=== PATIENT | male | born 1955 | race Caucasian/White ===

== ENCOUNTER → 2018-11-21 06:59 | Outpatient (CLI) | payer MEDICARE, OTHER, SELFPAY ==
[2018-11-21 07:45] LABS: Hematocrit 45.1 % (41-53); Hemoglobin 14.9 g/dL (13.5-17.5)
[2018-11-21 08:14] LABS: Blood Urea Nitrogen 20 mg/dL (9-20); Calcium 9.2 mg/dL (8.4-10.2); Carbon Dioxide 28 mmol/L (22-32); Chloride 103 mmol/L (98-107); Cholesterol 197 mg/dL (140-199); Estimated Glomerular Filt Rate > 60.0 mL/min (>60); Glucose 108 mg/dL (80-110); HDL Cholesterol 57 mg/dL (40-60); HEMOLYSIS < 15 (0-50); LDL Cholesterol Calculated 113 mg/dL (<100); Potassium 4.2 mmol/L (3.4-5.1); Sodium 138 mmol/L (137-145); Triglycerides 134 mg/dL (35-150)
[2018-11-21 08:31] LABS: Vitamin D 25 Hydroxy (D3) 20.5 ng/mL (30.0-100.0)
[2018-11-21 08:45] LABS: Prostate Specific Antigen Scrn 0.767 ng/mL (0.1-4.0)
== END ==
PROVIDERS: PCP Student in an Organized Health Care Education/Training Program; Visit Provider Student in an Organized Health Care Education/Training Program
DX: E55.9 Vitamin D deficiency, unspecified (principal); E78.00 Pure hypercholesterolemia, unspecified; G47.30 Sleep apnea, unspecified; I10 Essential (primary) hypertension; Z12.5 Encounter for screening for malignant neoplasm of prostate
CPT/HCPCS: 36415; 80048; 80061; 82306; 85014; 85018; G0103

== ENCOUNTER → 2018-12-08 15:56 | Outpatient (CLI) | payer MEDICARE, OTHER, SELFPAY ==
--- NOTE | 2018-12-08 15:59 | DI.RAD.S_ITS ---
PROCEDURE: XR KNEE LT 3V INDICATIONS: left knee effusion TECHNIQUE: 3 views of the knee were acquired. COMPARISON: None. FINDINGS: Bones: No fractures or dislocations. No suspicious bony lesions. Mild tricompartmental osteoarthritis. Soft tissues: Trace suprapatellar joint effusion. No suspicious soft tissue calcifications. IMPRESSION: 1. Mild tricompartmental osteoarthritis. 2. Trace nonspecific joint effusion. 3. No fracture. No acute osseous lesion. If symptoms and/or clinical suspicion for pathology persists, further assessment with repeat radiographs (7-10 days) or advanced imaging (e.g. CT, MRI or bone scan) may be helpful. Dictated by: Leola Schmidt MD, PhD on 12/08/2018 at 16:28 Approved by: Leola Schmidt MD, PhD on 12/08/2018 at 16:29
== END ==
PROVIDERS: PCP Student in an Organized Health Care Education/Training Program; Visit Provider Physician Assistant
DX: S80.02XA Contusion of left knee, initial encounter (principal); M25.462 Effusion, left knee; M17.12 Unilateral primary osteoarthritis, left knee
CPT/HCPCS: 73562

== ENCOUNTER → 2019-01-24 13:50 | Outpatient (CLI) | payer MEDICARE, OTHER, SELFPAY ==
--- NOTE | 2019-01-24 13:52 | DI.NM.S_ITS ---
PROCEDURE: MD RICKI PERF SPECT REST & STR Rest and exercise myocardial perfusion SPECT with gated imaging and ejection fraction RADIOPHARMACEUTICAL: 25.5 mCi Tc-99m sestamibi IV at rest and 24.1 mCi Tc-99m sestamibi IV at peak exercise. A [id number] was performed. INDICATIONS: Fasicular block TECHNIQUE: Radiopharmaceutical was injected at peak stress test, and also at rest. SPECT images were obtained. SPECT myocardial perfusion images were displayed in short axis, horizontal long axis, and vertical long axis views. Gated images were reviewed using [employer] software. COMPARISON: [place], [place], PET/CT WHOLE BODY EXTENDED, 08/31/2013, 11:49. CARDIAC STRESS: A standard Remington treadmill exercise tolerance test was performed by the patient under the supervision of an attending staff. The patient exercised for 8 minutes and 53 seconds; functional aerobic impairment (MARIANA) is -10 %. Hemodynamic data: There is normal heart rate and hypertensive response to exercise stress. Patient achieved 103% of maximum predicted heart rate at peak exercise. Symptoms: Patient denied chest pain during exercise. EKG: No diagnostic EKG changes of ischemia; no ectopy. FINDINGS: Raw data: There is good myocardial labeling by radiotracer. No significant motion artifacts. Lbmf-nq-jlpbh ratio is 0.21 (normal is less than 0.38 for sestamibi tracer, and less than 0.50 for thallium tracer). Left ventricle function: Gated images demonstrate normal left ventricle wall thickening. No segmental wall motion abnormality. No transient ischemic dilation; TID is 1.02 (normal less than 1.3). The left ventricle resting end-diastolic volume is 91 mL. Left ventricle stress ejection fraction is 69% ; normal values are above 45%. Myocardial perfusion: There is a moderate-size, moderately severe perfusion defect involving apical inferior, mid inferior and mid inferolateral and basal inferior and basal inferoseptal oliva on supine stress images which resolve on prone imaging, consistent with artifact secondary to subdiaphragmatic attenuation; There was similar, but at a lesser degree defect involving the inferior and inferolateral wall on supine stress images as well. Otherwise normal distribution of activity in the left ventricular myocardium. No fixed or reversible perfusion defects. IMPRESSION: Good exercise capacity. Negative perfusion study for ischemia r scar. Artefactual inferior and inferolateral wall findings as above. Hypertensive response to exercise. Dictated by: Jose Titus M.D. on 01/25/2019 at 16:35 Approved by: Jose Titus M.D. on 01/25/2019 at 16:43
--- NOTE | 2019-01-24 14:53 | P.PCN_ITS ---
Cardiac Stress Test Report Referral & Results Date Patient Seen: 01/24/19 Time Patient Seen: 14:30 Requesting provider: Bear Perez Indication: New left Fascicular block Procedure Note: Today following both written and verbal informed consent the patient was exercised according to a standard Remington protocol patient went for a total of 8 minutes 53 seconds achieving a maximum heart rate of 160 maximum systolic blood pressure of 210. This is approximately 10.1 METs. Exercise was terminated at this point because of fatigue. Patient was also given Cardiolite through a previously started Hep-Lock IV by the plumbing service technician approximately 1 minute prior to the cessation of exercise. Exaggerated blood pressure response to exercise. Occasional PACs/PVCs that increased in frequency with exercise. No signs or symptoms of angina during the test. MARIANA-10% on the active scale. 1-[address] deviations that resolved rapidly with rest. Impression: Low probability for ischemia, though rhythm disturbance becomes more pronounced with exercise. Will await perfusion imaging. Please note: Actual ECG tracings can be found in the PACS system.
== END ==
PROVIDERS: PCP Student in an Organized Health Care Education/Training Program; Visit Provider Student in an Organized Health Care Education/Training Program
DX: I44.4 Left anterior fascicular block (principal)
CPT/HCPCS: 78452; 93016; 93017; 93018; A9502

== ENCOUNTER 2019-06-13 07:51 | Day surgery (SDC) | payer MEDICARE, OTHER, SELFPAY ==
--- NOTE | 2019-06-13 | PATH_ITS ---
[facility] Accession Number: [id number] . 01 Material submitted: . esophagus - ESOPHAGUS BIOPSY . 02 Diagnosis: Esophagus, Biopsy: Squamous epithelium with increased intraepithelial eosinophils (greater than 50 per high powered field). See comment. Negative for dysplasia and malignancy. V 06/15/2019 1433 Local . 02 Comment: In the proper clinical setting, the histopathologic appearance would support a clinical impression of eosinophilic esophagitis. The differential diagnosis includes drug reaction, gastroesophageal reflux, and food allergies. . . 02 Electronically signed: . Sravan Paz MD, PhD, Pathologist NPI- [id number] . 01 Gross description: . ESOPHAGUS BIOPSY: Received in formalin are multiple fragment(s) of purvis, soft tissue measuring 0.1 x 0.1 x 0.1 cm to 0.3 x 0.2 x 0.2 cm submitted entirely in 1 cassette(s) /[facility] 06/13/2019 1921 Local . 02 Microscopic: . A PAS stain is performed to evaluate for fungal organisms, and is negative. A control stain shows appropriate reactivity. . 02 Pathologist provided ICD-10: K20.0 . 02 CPT . 374564, [id number] Performed at: 01 [facility] [address], [place], [place] [id number] MD Dorian Anthony MD Phone: [phone] Performed at: 02 [facility] [address] [place], [place] [id number] MD Faith Justin MD Phone: [phone]
[2019-06-13 08:12] VITALS: BP 157/106; PULSE 73; RESP 16; TEMP 36.4; O2SAT 96; BMI 30.6
--- NOTE | 2019-06-13 08:18 | PM.HP.1 ---
History of Present Illness History of Present Illness Date Patient Seen: 06/13/19 Chief complaint: [id number] EGD Narrative: Dysphagia Patient History Family & Social History Tobacco & Substance use: Smoking Status Never smoker alcohol intake current Meds Home Medications and Allergies Home Medications Medication Instructions Recorded Confirmed Type fluticasone propionate 50 1 spray NASAL DAILY 11/17/18 12/08/18 History mcg/actuation nasal spray,suspension loratadine 10 mg tablet 10 mg PO DAILY 11/17/18 12/08/18 History montelukast 10 mg tablet 10 mg PO QPM #30 tab 11/17/18 12/08/18 Rx albuterol sulfate 90 mcg/actuation 1 inh INHALATION Q4-6H PRN #18 gram 11/22/18 12/08/18 Rx aerosol inhaler hydrochlorothiazide 12.5 mg tablet 12.5 mg PO DAILY #90 tab 05/30/19 Rx losartan 50 mg tablet 50 mg PO DAILY #90 tab 05/30/19 Rx Allergies Allergy/AdvReac Type Severity Reaction Status Date / Time Sulfa (Sulfonamide Allergy Intermediate Verified 11/24/18 10:27 Antibiotics) [SULFA (SULFONAMIDE ANTIBIOTICS)] Exam Narrative Exam Narrative: Oropharynx free of lesions Chest clear to auscultation percussion Cardiac exam reveals no S3 or murmur Assessment & Plan Assessment & Plan narrative: Dysphagia. Need for upper endoscopy and possible dilation. Previous endoscopy 7 years ago showed only reflux esophagitis no eosinophilic esophagitis. Biopsies will be taken.
--- NOTE | 2019-06-13 08:20 | PM.OP.ENDO ---
Operative Date/Time/Diagnoses Date of procedure: 06/13/19 Pre-op diagnosis: See indication and findings Procedure & Clinicians Study performed: EGD Same procedure as scheduled: Yes Indications: Dysphagia Surgeon: Brisa Rashid Procedure Notes Procedure in detail: After informed consent was obtained the patient was placed in left lateral decubitus position. The video upper scope was placed into the oropharynx and with the patient still solid in the esophagus. The esophagus, stomach, duodenum were carefully examined. On withdrawal, retroflexed view the GE junction was performed. The scope was removed. The patient tolerated procedure well. Blood loss none Complications none Sedation Total sedation time 10 minutes Versed 4 mg fentanyl 100 mg IV titration Findings 1. Some degree of longitudinal furrows and mild rings in the proximal to midesophagus. Biopsies taken to rule out eosinophilic esophagitis. 2. Extensive ulcerations from reflux beginning at 30 cm from the incisors down to 36 cm from the incisors. At the squamocolumnar junction there was LA classification D esophagitis with circumferential ulceration. No tight stricture was seen. 3. 4-5 cm hiatal hernia without Rodolfo lesions 4. Normal distal stomach 5. Normal duodenum Clearly think patient's primary problem with his dysphagia is uncontrolled reflux and ulceration. These need to be here old. I will send in a proton pump inhibitor to his pharmacy and he will return to see us in 1-2 months to discuss how he is doing. We will also get back in touch regarding the biopsies to see if he has eosinophilic esophagitis as well.
[2019-06-13] MEDS: SODIUM CHLORIDE 0.9% 1,000 ML 100 ML IV (08:24)
[2019-06-13] MEDS: fentaNYL 250 MCG/5 ML INJ IV (08:42)
[2019-06-13] MEDS: MIDAZOLAM 5 MG/5 ML VIAL IV (08:43)
[2019-06-13 08:46] VITALS: BP 126/84; PULSE 67; RESP 10; TEMP 36.6; O2SAT 97
[2019-06-13 08:50] VITALS: BP 121/86; PULSE 71; RESP 11; TEMP 37.1; O2SAT 95
[2019-06-13 08:54] VITALS: BP 123/85; PULSE 74; RESP 10; TEMP 36.5; O2SAT 94
[2019-06-13 08:59] VITALS: BP 126/91; PULSE 69; RESP 12; TEMP 36.5; O2SAT 96
[2019-06-13 09:13] VITALS: BP 113/85; PULSE 67; RESP 10; TEMP 36.5; O2SAT 95
== END 2019-06-13 09:24 | disposition home or self-care (01) ==
LOC: ENDO 07:53
PROVIDERS: PCP Student in an Organized Health Care Education/Training Program; Referring Provider Student in an Organized Health Care Education/Training Program; Visit Provider Internal Medicine Gastroenterology
PROC: 0DJ08ZZ Inspection of Upper Intestinal Tract, Via Natural or Artificial Opening Endoscopic (ICD-10-PCS; CPT 43235; principal; 2019-06-13 09:00)
DX: K20.0 Eosinophilic esophagitis (principal); K44.9 Diaphragmatic hernia without obstruction or gangrene
CPT/HCPCS: 43239; J2250; J3010

== ENCOUNTER → 2021-05-25 09:06 | Outpatient (CLI) | payer MEDICARE, OTHER, SELFPAY ==
[2021-05-25 11:29] LABS: BUN Creatinine Ratio 17.2 (6-22); Blood Urea Nitrogen 20 mg/dL (9-20); Calcium 9.2 mg/dL (8.4-10.2); Carbon Dioxide 33 mmol/L (22-32); Chloride 101 mmol/L (98-107); Estimated Glomerular Filt Rate > 60.0 mL/min (>60); Glucose 106 mg/dL (80-110); HEMOLYSIS < 15 (0-50); Potassium 3.7 mmol/L (3.4-5.1); Sodium 137 mmol/L (137-145)
[2021-05-25 11:56] LABS: Prostate Specific Antigen Scrn 0.775 ng/mL (0.1-4.0)
== END ==
PROVIDERS: PCP Student in an Organized Health Care Education/Training Program; Referring Provider Student in an Organized Health Care Education/Training Program; Visit Provider Student in an Organized Health Care Education/Training Program
DX: Z12.5 Encounter for screening for malignant neoplasm of prostate (principal); I10 Essential (primary) hypertension
CPT/HCPCS: 36415; 80048; G0103